=== PATIENT | female | born 1990 | race Caucasian/White ===

== ENCOUNTER → 2024-05-17 13:45 | Outpatient (REF) | payer OTHER, SELFPAY | LOC: HWRAD 13:45 | PROVIDERS: ATTENDING PHYSICIAN Obstetrics & Gynecology; FAMILY PHYSICIAN Physician Assistant Medical | DX: R10.2 Pelvic and perineal pain (principal) | CPT/HCPCS: 76830; 76856 ==

== ENCOUNTER → 2024-12-09 09:08 | Outpatient (REF) | payer OTHER, SELFPAY | LOC: HWRAD 09:08 | PROVIDERS: ATTENDING PHYSICIAN Physician Assistant Medical | DX: R10.11 Right upper quadrant pain (principal) | CPT/HCPCS: 76700 ==